=== PATIENT | female | born 1945 | race Caucasian/White ===

== ENCOUNTER 2018-04-25 22:10 | Inpatient (IN) ==
[2018-04-25 23:46] LABS: BASO# 0.01 X1000 (0.0-0.2); BASO% 0.1 % (0.0-0.8); EOS# 0.01 X1000 (0.0-0.7); EOS% 0.1 % (0.0-10.0); HEMATOCRIT 41.7 % (37.0-47.0); HEMOGLOBIN 14.4 g/dL (12.0-16.0); LYMPH# 1.04 X1000 (1.2-3.4); LYMPH% 9.5 % (20.5-51.1); MCH 31.1 PG (27-31); MCHC 34.5 g/dL (33-37); MCV 90.1 FL (81-99); MONO# 0.76 X1000 (0.11-0.59); MPV 10.9 FL (7.4-10.4); NEUT# 9.08 X1000 (1.4-6.5); NEUT% 83.3 % (42.2-75.2); PLT 274 X1000 (130-400); RBC 4.63 XMIL (4.2-5.4); RDW 12.5 % (11.5-14.5)
[2018-04-25 23:57] LABS: INR 0.96; PROTIME 13.6 Seconds (11.0-16.0); PTT 30.1 Seconds (22.3-41.8)
[2018-04-26 00:08] LABS: AGAP 15; ALB/GLOB RATIO 1.4; ALBUMIN 4.1 g/dL (3.5-5.0); ALKALINE PHOSPHATASE 71 U/L (32-104); BUN 18 mg/dL (8-22); CALCIUM 8.9 mg/dL (8.8-10.2); CHLORIDE 101 mmol/L (98-107); COSMO 279; CREATININE 0.9 mg/dL (0.5-0.9); ESTIMATED GFR > 60; GLUCOSE 149 mg/dL (70-104); GOT 16 U/L (10-30); GPT 12 U/L (10-36); POTASSIUM 3.6 mmol/L (3.5-5.1); SODIUM 137 mmol/L (136-145); TCO2 21 mmol/L (25-35); TOTAL BILIRUBIN 0.95 mg/dL (0.20-1.00)
[2018-04-26] MEDS ORDERED: PROTONIX IV ONE (02:10)
[2018-04-26] MEDS ORDERED: SODIUM CHLORIDE 0.9% INJ ONE (02:10)
[2018-04-26] MEDS ORDERED: ZOFRAN IV PRN (03:19)
[2018-04-26] MEDS ORDERED: NS 500 ML IV ONE (03:19)
[2018-04-26] MEDS: NS 1,000 ML IV SCH ×2 (03:30→22:20)
[2018-04-26] MEDS ORDERED: SODIUM CHLORIDE 0.9% INJ SCH (03:30)
--- NOTE | 2018-04-26 04:24 | HISTORY AND PHYSICAL ---
PRIMARY CARE PROVIDER: Srini Oropeza. CHIEF COMPLAINT: Blood in stool. HISTORY OF PRESENT ILLNESS: A 72-year-old female with a history of hypertension , asthma and hyperlipidemia, underwent a colonoscopy with polyp removal by Dr. Yasmine Ohara today outpatient. She went home, had minimal pain and then as the day progressed started having large amounts of bright red blood in her stool so she came into the emergency room. Although her hemoglobin and hematocrit were normal, the patient continued to have bright red blood in her stool. Hemoccult stool was sent which was positive. She will be admitted for further evaluation and treatment. PAST MEDICAL HISTORY: 1. Asthma. 2. Bladder problems in the past. 3. Hypertension. 4. Hyperlipidemia. 5. Osteoporosis. 6. GERD. 7. Anxiety disorder. 8. Depression. PREVIOUS SURGICAL HISTORY: 1. Right oophorectomy. 2. Total abdominal hysterectomy. 3. Laparoscopic George fundoplication. 4. She has also had a tonsillectomy. 5. Bilateral tubal ligation. 6. Appendectomy. ALLERGIES: No known drug allergies. FAMILY HISTORY: Father from TB. Mother when she was age 3, she is unsure of any genetic illnesses. SOCIAL HISTORY: No tobacco. May have 1-2 drinks per year and no illicit drugs. CURRENT MEDICATIONS: Dosages have not been reconciled. The patient I believe takes: 1. Pravastatin. 2. Metoprolol. 3. Aspirin 81 mg daily which has been held for the last 7 days. An order was placed for Nursing to reconcile home medications in the computer. These will be restarted when appropriate. REVIEW OF SYSTEMS: Fourteen point review of systems conducted with the patient. Pertinent positives for admission listed above in the HPI. All other systems reviewed and are negative other than the patient having a persistent cough for the past 40 years. PHYSICAL EXAMINATION: VITAL SIGNS: Temperature 98.8, pulse 111, respirations 18, blood pressure 149/ 84, oxygen saturation 97% on room air. GENERAL: Pleasant 72-year-old female lying in the ER stretcher, answers all questions appropriately, is alert and oriented times 3 and is in no acute distress. HEENT: Head is atraumatic, normocephalic. Pupils equal, round, reactive to light. Extraocular eye movement intact. Sclerae are anicteric. Conjunctiva is pink. Oral mucosa is moist. NECK: Supple. No JVD. No thyromegaly. Trachea is midline. No cervical lymphadenopathy. CARDIAC: S1, S2 appreciated. No murmurs, gallops, rubs. Patient is tachycardic. LUNGS: Clear to auscultation bilaterally. No rhonchi, wheezes, rales. Symmetric rise and fall with respirations. ABDOMEN: Soft, nondistended, diffusely tender mostly in the epigastric area. No pulsatile mass. No organomegaly. Bowel sounds present in all 4 quadrants, hyperactive. EXTREMITIES: No clubbing, cyanosis, or edema. Two-plus pedal pulses bilaterally. GENITOURINARY: No bladder distention. Patient voids. Otherwise deferred. NEUROLOGICAL: Alert and oriented times 3. Cranial nerves II through XII grossly intact. LABORATORY DATA: WBC 10.90. Hemoglobin 14.4. Hematocrit 41.7. Platelet count 274. Coagulation studies within normal limits. Sodium 137. Potassium 3.6. Chloride 101. Carbon dioxide 21. BUN 15. Creatinine 0.9. Glucose 149. ASSESSMENT AND PLAN: 1. Lower gastrointestinal bleed. Patient had outpatient colonoscopy with polyp removal today by Dr. Yasmine Ohara. Dr. Ohara is taking a leave of absence. We will consult Dr. Oro. Protonix 40 mg IV q.12 hours. We will recheck a stat hemoglobin and hematocrit. The last one was checked at 10:30 yesterday afternoon. Patient is mildly tachycardic. We will give a fluid bolus. She has been typed and screened for possible blood administration. 2. Hypertension. We will continue home medications once reconciled. 3. Hyperlipidemia. Continue home medication once dosages put in the computer. 4. Abdominal pain, likely secondary to number 1. Patient is not in enough pain to want medication at this time. We will continue to monitor. Further recommendations per patient clinical course. Dictated by QUYEN Wang for Roel Gómez MD I personally examined this patient at bedside with SERVICE ENGINE REPAIRER. Her exam was notable for epigastric tenderness without any peritoneal signs. BS were slightly hyperactive and she was mildly pale. Though I suspect a lower GI bleed there features that are suspicious for UGIB. Will monitor H and H closely. Continue with IVF and maintain very conservative control of BP, i.e., patient should not have BP lowered less than 140 in the early stages ,i.e. 2 days due to decreased intravascular volume. cc: QUYEN Wang MD Edwin K. Matthews, MD MTDD
[2018-04-26 05:33] LABS: HEMOGLOBIN A1C 4.6 % (4.8-6.0)
[2018-04-26 06:31] LABS: BASO# 0.01 X1000 (0.0-0.2); BASO% 0.1 % (0.0-0.8); EOS# 0.04 X1000 (0.0-0.7); EOS% 0.6 % (0.0-10.0); HEMOGLOBIN 14.1 g/dL (12.0-16.0); LYMPH# 1.46 X1000 (1.2-3.4); LYMPH% 20.4 % (20.5-51.1); MCH 31.1 PG (27-31); MCHC 34.4 g/dL (33-37); MCV 90.3 FL (81-99); MONO# 0.65 X1000 (0.11-0.59); MONO% 9.1 % (1.7-9.3); MPV 10.8 FL (7.4-10.4); NEUT# 4.98 X1000 (1.4-6.5); NEUT% 69.8 % (42.2-75.2); PLT 222 X1000 (130-400); RBC 4.54 XMIL (4.2-5.4); RDW 12.6 % (11.5-14.5); WBC 7.14 X1000 (4.8-10.8)
--- NOTE | 2018-04-26 06:34 | PROVIDER DOCUMENTATION ---
This chart was entered by Tasneem Ayala Scribe, acting as scribe for Amrita Magana MD. HPI-Abdominal Pain/GI Problem - General Chief Complaint: GI Bleed Stated Complaint: HAD A COLONOSCOPY TODAY AND NOW BLEEDING EXCESSIVE Time Seen by Provider: 04/25/18 23:24 Source: patient Allergies/Adverse Reactions: Patient Allergies Allergy/AdvReac Type Severity Reaction Status Date / Time No Known Allergies Allergy Verified 09/08/14 16:24 Home Medications: Home Medication List Medication Instructions Recorded Confirmed Last Taken Type Metoprolol [Lopressor] 100 mg PO DAILY 09/08/14 05/02/16 05/01/16 21:00 History PRAVAstatin [Pravachol] 20 mg PO DAILY 05/01/16 05/02/16 05/01/16 21:00 History Promethazine [Phenergan] 25 mg PO Q6H PRN PRN #14 tablet 05/03/16 Unknown Rx Tramadol/APAP [Ultracet 1 each PO Q6H PRN PRN #30 tablet 05/03/16 Unknown Rx 37.5MG/325Mg] - History of Present Illness-ABD Quality of Pain: reports: none Severity in ED: reports: moderate Onset/Duration: reports: this afternoon Timing: reports: still present Exposure to sick contacts?: No Modifying Factors: improves with: nothing Dark Stools Present?: reports: black, tarry, bright red blood Rectal Pain: reports: known hemorrhoids Review of Systems - Adult - REVIEW OF SYSTEMS - ADULT Constitutional: reports: no symptoms reported. denies: chills, fever Eyes: reports: no symptoms reported Ears, Nose, Mouth & Throat: reports: no symptoms reported Cardiovascular: reports: no symptoms reported. denies: chest pain, edema Respiratory: reports: no symptoms reported. denies: cough, shortness of breath , wheezing Gastrointestinal: reports: rectal bleeding. denies: abdominal pain, diarrhea Genitourinary: reports: no symptoms reported Musculoskeletal: reports: no symptoms reported Integumentary: reports: no symptoms reported Neurological: reports: no symptoms reported Psychiatric: reports: no symptoms reported Endocrine: reports: no symptoms reported Hematologic/Lymphatic: reports: no symptoms reported Allergic/Immunologic: reports: no symptoms reported All Other Systems: Reviewed and Negative Past History - Adult - PAST MEDICAL HISTORY-ADULT Review of Records: reports: Old Records Reviewed, Nursing Assessment Review, Medications Reviewed, Social history reviewed & non-contributory. Gastrointestinal: reports: hemorrhoids, polyps - SOCIAL HISTORY Smoking: denies, non-smoker Substance Use: none/never Alcohol Use Frequency: never Living Situation: family Physical Exam-General - PHYSICAL EXAM-ADULT Initial Vital Signs Reviewed: Yes - CONSTITUTIONAL General Appearance: appears well, alert, no apparent distress - EYES Eyes: PERRL/EOMI - HEAD, EARS, NOSE, MOUTH & THROAT HENMT: normocephalic/atraumatic, moist mucous membranes, normal ENT inspection, TMs normal, pharynx normal - NECK Neck: non-tender, full range of motion, supple, normal inspection - RESPIRATORY Respiratory: chest non-tender, lungs clear, normal breath sounds - CARDIOVASCULAR Cardiovascular: normal peripheral pulses, regular rate, rhythm, no edema, no gallop, no JVD, no murmur - GASTROINTESTINAL (ABDOMEN) Abdominal Exam: normal bowel sounds, non tender, soft - GENITOURINARY Rectal Exam: normal rectal tone, black stool, hemorrhoids - LYMPHATIC Lymphatic: no adenopathy - MUSCULOSKELETAL Back Exam: normal inspection - SKIN Integumentary: normal color - NEUROLOGIC Neurologic: grossly normal - PSYCHIATRIC Psych/Mental Status: normal mood/affect, normal thought content, normal thought process, oriented x 3 Progress - PLAN OF CARE/RESULTS Progress/Plan/Lab Results: Vital Signs - 8 hr 04/25/18 22:24 Temperature 98.8 F Pulse Rate 111 H Respiratory Rate 18 Blood Pressure 149/84 O2 Sat by Pulse Oximetry 97 Orders Category Date Time Status CBC WITH ELECTRONIC DIFF [HEME] Stat Lab 04/25/18 22:43 Ordered COMPREHENSIVE METABOLIC PANEL [CHEM] Stat Lab 04/25/18 22:43 Ordered PROTIME WITH INR [COAG] Stat Lab 04/25/18 22:43 Ordered PTT [COAG] Stat Lab 04/25/18 22:43 Ordered TYPE & SCREEN [BBK] Stat Lab 04/25/18 22:43 Ordered GI Bleed (possible) Stat Oth 04/25/18 22:31 Ordered Result Diagrams: 04/25/18 22:39 04/25/18 22:39 - CONSULTS/PCP/HOSPITALIST Notification #1 *Consult/PCP/Hospitalist*: Dr Ramírez accepted patient Time Discussed: 02:13 Consult Disposition: Will see in ED Departure - Departure Date of Disposition Decision: 04/26/18 Time of Disposition Decision: 02:10 DIAGNOSIS: GI bleed Disposition: ADMITTED INPATIENT 09 Certified Medical Emergency: Emergent Condition: Good Referrals and Follow-Ups: Srini Oropeza MD [Primary Care Provider] - - Critical Care Note This patient required my direct & personal management of CC.: No Attestation - Physician/ SRINIVASAN Attestation Patient care was provided by Advanced Practice Provider:: No The physician spent face to face time with patient:: Yes Advanced Practice Provider documentation review:: Supervising physician onsite and consulted in the evaluation and care of this patient. The physician did have a face to face encounter with the patient. This chart was documented by the indicated scribe, (Tasneem Ayala, Sal) and accurately reflects the services I performed and decisions made by me, Amrita Magana MD, as attested by the provider's signature.
[2018-04-26] MEDS: PROTONIX IV SCH ×2 (08:47→21:07)
[2018-04-26 10:12] LABS: URINE SOURCE CLEAN CATCH
[2018-04-26 10:17] LABS: BILIRUBIN URINE NEGATIVE (NEGATIVE); BLOOD URINE MODERATE (NEGATIVE); COLOR YELLOW; GLUCOSE URINE NEGATIVE (NEGATIVE); KETONE URINE TRACE mg/dL (NEGATIVE); LEUKOCYTES URINE LARGE (NEGATIVE); NITRITE URINE NEGATIVE (NEGATIVE); PROTEIN URINE TRACE mg/dL (NEGATIVE); SP GRAVITY URINE 1.016; TURBIDITY URINE HAZY (CLEAR); UROBILINOGEN URINE NORMAL (NORMAL)
[2018-04-26 10:29] LABS: UR EPITHELIAL CELLS <10 /HPF (<10); URINE BACTERIA NEGATIVE /HPF; URINE RBC <10 /HPF (<10); URINE WBC TNTC /HPF (<10)
[2018-04-26 10:52] LABS: URINE CRYSTALS NONE SEEN; URINE SMALL ROUND CELLS TRANS PRESENT
[2018-04-26 13:08] LABS: BASO# 0.01 X1000 (0.0-0.2); BASO% 0.2 % (0.0-0.8); EOS# 0.04 X1000 (0.0-0.7); EOS% 0.8 % (0.0-10.0); HEMATOCRIT 35.5 % (37.0-47.0); LYMPH# 1.02 X1000 (1.2-3.4); MCH 30.9 PG (27-31); MCHC 33.8 g/dL (33-37); MCV 91.5 FL (81-99); MONO% 8.2 % (1.7-9.3); MPV 10.3 FL (7.4-10.4); NEUT# 3.39 X1000 (1.4-6.5); NEUT% 69.8 % (42.2-75.2); PLT 197 X1000 (130-400); RBC 3.88 XMIL (4.2-5.4); RDW 12.4 % (11.5-14.5); WBC 4.86 X1000 (4.8-10.8)
[2018-04-26 18:52] LABS: BASO# 0.01 X1000 (0.0-0.2); BASO% 0.2 % (0.0-0.8); EOS# 0.04 X1000 (0.0-0.7); EOS% 0.8 % (0.0-10.0); HEMATOCRIT 35.8 % (37.0-47.0); HEMOGLOBIN 12.1 g/dL (12.0-16.0); LYMPH# 1.09 X1000 (1.2-3.4); MCH 31.1 PG (27-31); MCHC 33.8 g/dL (33-37); MONO# 0.42 X1000 (0.11-0.59); MONO% 8.1 % (1.7-9.3); MPV 10.4 FL (7.4-10.4); NEUT# 3.64 X1000 (1.4-6.5); NEUT% 69.9 % (42.2-75.2); PLT 203 X1000 (130-400); RBC 3.89 XMIL (4.2-5.4); RDW 12.5 % (11.5-14.5)
--- NOTE | 2018-04-26 19:13 | CONSULTATION ---
DATE OF CONSULTATION: 04/26/2018 REASON FOR CONSULTATION: Rectal bleeding, status post colonoscopy with polypectomies. HISTORY OF PRESENT ILLNESS: This is a 72-year-old female who underwent a colonoscopy yesterday by Dr. Ohara on 04/25/2018. Operative findings from Dr. Ohara were reviewed. Findings showed a flat polyp at the cecum with polypectomy performed with lift technique and tattoo. Of note the flap cecal polyp had lifted poorly, 4 polyps in the transverse colon with polypectomy colitis throughout the entire colon. Random biopsies were performed 4 polyps in the colon, severe diverticulosis, internal grade 2 hemorrhoids and external hemorrhoids. Patient was started on Augmentin for 7 days for colitis. Patient states after her colonoscopy she had trouble passing air and she states she eventually had bowel urgency and had noted clots with bright red blood in the stool. She had subsequent bleeding and came in to the emergency room for evaluation. On admission to the emergency room her hemoglobin was 14.4, hematocrit 41.7. Repeat hemoglobin and hematocrit this morning showed 14.1 and 41.0. Repeat hemoglobin and hematocrit at 12 noon today showed hemoglobin 12.0, hematocrit 35.5, MCV 91.5. Patient currently denies abdominal pain. She denies dizziness or lightheadedness. She reports having a small liquid stool this morning and states it was dark in color not bright red as it was prior to admission. PAST MEDICAL HISTORY: Asthma, bladder problems, hypertension, hyperlipidemia, osteoporosis, GERD, anxiety disorder, depression. PREVIOUS SURGICAL HISTORY: Colonoscopy on 04/25/[address] Ohara, right oophorectomy, total abdominal hysterectomy, laparoscopic George fundoplication, history of tonsillectomy, bilateral tubal ligation, appendectomy. ALLERGIES: No known drug allergies. HOME MEDICATIONS: Aspirin 81 mg daily, losartan 25 mg daily, Lopressor 100 mg daily, Pravachol 20 mg daily. SOCIAL HISTORY: No reported tobacco use. Occasional alcohol use. FAMILY HISTORY: Father from tuberculosis, mother from unknown cause. REVIEW OF SYSTEMS: Per history of present illness. PHYSICAL EXAMINATION: Vital Signs: Temperature 98.6 degrees, pulse 98, respirations 19, blood pressure 152/75. General: Patient is awake, alert, no acute distress. HEENT: Normocephalic, atraumatic. Pupils equal, round, reactive to light. Sclerae are nonicteric. Cardiovascular: Regular rate and rhythm. Respiratory: Lung sounds clear bilaterally. Abdomen: Soft. Only mild tenderness noted, positive bowel sounds. Extremities: No lower extremity edema noted. Pedal pulses present bilaterally. Neurologic: Cranial nerves 2-12 grossly intact. Patient is awake, alert, and oriented to person, place, and time. DIAGNOSTIC RESULTS: Laboratory. Hematology. WBC 4.86, hemoglobin 12.0, hematocrit 35.5, MCV 91.5. Coagulation. Pro time 13.6, INR 0.96, PTT 30.1. Chemistry, sodium 137, potassium 3.6, chloride 101, CO2 21, BUN 18, creatinine 0.9, glucose 149, total bilirubin 0.95, AST 16, ALT 12, alkaline phosphatase 71. ASSESSMENT AND PLAN: 1. Lower gastrointestinal bleeding status post colonoscopy with polypectomy on 04/25/2018. Will continue to monitor for active bleeding. Currently it seems to have decreased and she has had recent darker loose stool. We will monitor hemoglobin and hematocrit, transfuse packed red blood cells as indicated. 2. Multiple colon polyps, colitis, severe diverticulosis and internal, external hemorrhoids noted by colonoscopy on at on 04/25/2018, recommend to hold aspirin, avoid NSAIDs. Will continue to monitor and further plans be made according to her progress. Patient was also seen by Dr. Oro. Dictated by QUYEN Marie for Franklin Oro MD cc: QUYEN Branch MD
[2018-04-27 00:53] LABS: BASO# 0.02 X1000 (0.0-0.2); BASO% 0.4 % (0.0-0.8); EOS# 0.06 X1000 (0.0-0.7); EOS% 1.2 % (0.0-10.0); HEMATOCRIT 38.3 % (37.0-47.0); LYMPH# 1.47 X1000 (1.2-3.4); LYMPH% 29.3 % (20.5-51.1); MCHC 33.9 g/dL (33-37); MCV 91.4 FL (81-99); MONO# 0.49 X1000 (0.11-0.59); MONO% 9.8 % (1.7-9.3); MPV 10.3 FL (7.4-10.4); NEUT# 2.97 X1000 (1.4-6.5); NEUT% 59.3 % (42.2-75.2); PLT 224 X1000 (130-400); RBC 4.19 XMIL (4.2-5.4); RDW 12.4 % (11.5-14.5); WBC 5.01 X1000 (4.8-10.8)
[2018-04-27 07:02] LABS: BASO# 0.01 X1000 (0.0-0.2); BASO% 0.3 % (0.0-0.8); EOS# 0.08 X1000 (0.0-0.7); HEMATOCRIT 35.8 % (37.0-47.0); LYMPH# 0.93 X1000 (1.2-3.4); LYMPH% 23.7 % (20.5-51.1); MCH 30.8 PG (27-31); MCHC 33.5 g/dL (33-37); MCV 91.8 FL (81-99); MONO# 0.38 X1000 (0.11-0.59); MONO% 9.7 % (1.7-9.3); MPV 10.3 FL (7.4-10.4); NEUT# 2.52 X1000 (1.4-6.5); NEUT% 64.3 % (42.2-75.2); PLT 197 X1000 (130-400); RDW 12.3 % (11.5-14.5); WBC 3.92 X1000 (4.8-10.8)
[2018-04-27 07:39] LABS: AGAP 8; BUN 6 mg/dL (8-22); CHLORIDE 108 mmol/L (98-107); COSMO 278; CREATININE 0.6 mg/dL (0.5-0.9); ESTIMATED GFR > 60; GLUCOSE 89 mg/dL (70-104); POTASSIUM 3.1 mmol/L (3.5-5.1); SODIUM 141 mmol/L (136-145); TCO2 25 mmol/L (25-35)
[2018-04-27] MEDS: PROTONIX IV SCH (10:29)
[2018-04-27 11:50] VITALS: BP 167/85
--- NOTE | 2018-04-27 13:52 | DISCHARGE SUMMARY ---
ADMISSION DATE: 04/26/2018 DISCHARGE DATE: 04/27/2018 HISTORY OF PRESENT ILLNESS: This is a 72-year-old with a history of hypertension, asthma, and hyperlipidemia, who underwent colonoscopy and had polyp removed per Dr. Ana Cristina Ohara as an outpatient. She went home, had minimal pain, and then progressively started having large amounts of bright red blood in the stool and she came into the emergency room. Her hemoglobin and hematocrit were normal, but Dr. Ohara wanted to admit and follow. She has not had any further sign of bleeding. She feels good this morning, and Dr. Middleton called and said she can go home. PAST MEDICAL HISTORY: 1. Asthma. 2. Bladder problems in the past. 3. Hypertension. 4. Hyperlipidemia. 5. Osteoporosis. 6. Gastroesophageal reflux disease. 7. Anxiety disorder. 8. Depression. SURGICAL HISTORY: 1. Oophorectomy. 2. Total abdominal hysterectomy. 3. Laparoscopic George fundoplication. 4. She has also had tonsillectomy. 5. Bilateral tubal ligation. 6. Appendectomy. DIAGNOSTIC DATA: Her follow-up hematocrit the following morning was 35, and hemoglobin was 12. DISPOSITION: We will discharge her home. CURRENT MEDICATIONS: Aspirin, we will hold through the weekend and start again on Sunday. She is on losartan 25 mg a day. Metoprolol 100 mg a day. Pravachol 20 mg a day. cc: Jordan Farias MD
== END 2018-04-27 15:38 | disposition home or self-care (01) | DRG 921 ==
LOC: ED 22:10 → EDIPHOLD 04-26 03:45 → SUATTDRO 04-26 03:45 → 3N 04-26 15:11
PROVIDERS: ATTEND Emergency Medicine
CPT/HCPCS: 80048; 80053; 81001; 82270; 83036; 84443; 85014; 85018; 85025; 85610; 85730; 86850; 86900; 86901; 87088; 96374; 96376; 99285; C9113; J7030; J7040; S0164

== ENCOUNTER 2018-06-21 06:55 | Inpatient (IN) ==
[2018-06-21] MEDS ORDERED: ENTEREG ONE (07:29)
[2018-06-21] MEDS ORDERED: LR 1,000 ML ONE ×2 (07:29→07:53)
[2018-06-21] MEDS ORDERED: MEFOXIN 1 GM/D5W 2 GM/100 ML IVPB ONE (07:29)
--- NOTE | 2018-06-21 07:32 | EKG Report ---
Test Performed on : 06/21/2018 07:27:46 AM Test Reason : PREOP Blood Pressure : / mmHG Vent. Rate : 077 BPM Atrial Rate : 077 BPM P-R Int : 142 ms QRS Dur : 086 ms QT Int : 402 ms P-R-T Axes : 036 005 025 degrees QTc Int : 454 ms Normal sinus rhythm. Minimal voltage criteria for LVH, may be normal variant Borderline ECG When compared with ECG of 01-MAY-2016 13:43, Minimal criteria for Anterior infarct are no longer present Unconfirmed Result
[2018-06-21] MEDS ORDERED: XYLOCAINE-MPF 2% ONE (07:57)
[2018-06-21] MEDS ORDERED: DIPRIVAN 1% ONE (07:57)
[2018-06-21] MEDS ORDERED: ROBINUL ONE ×2 (07:57→10:45)
[2018-06-21] MEDS ORDERED: QUELICIN (DOSE) ONE (07:57)
[2018-06-21] MEDS ORDERED: EXPAREL 1.3% ONE (08:37)
[2018-06-21] MEDS ORDERED: SODIUM CHLORIDE 0.9% 10 ML ONE ×2 (08:37→08:42)
[2018-06-21] MEDS ORDERED: MARCAINE 0.25% ONE (08:37)
[2018-06-21] MEDS ORDERED: NORCURON ONE (08:42)
[2018-06-21] MEDS ORDERED: OFIRMEV 1000 MG/ISOTONIC SOLN 1,000 MG/100 ML BOTTLE ONE (08:54)
[2018-06-21] MEDS ORDERED: DILAUDID ONE (09:03)
[2018-06-21] MEDS ORDERED: ZOFRAN ONE (09:07)
[2018-06-21] MEDS ORDERED: DECADRON ONE (09:07)
[2018-06-21] MEDS ORDERED: TORADOL ONE (09:07)
[2018-06-21 10:23] LABS: URINE SOURCE CATH
[2018-06-21 10:33] LABS: BILIRUBIN URINE NEGATIVE (NEGATIVE); BLOOD URINE NEGATIVE (NEGATIVE); COLOR STRAW; GLUCOSE URINE NEGATIVE (NEGATIVE); KETONE URINE NEGATIVE (NEGATIVE); LEUKOCYTES URINE NEGATIVE (NEGATIVE); NITRITE URINE NEGATIVE (NEGATIVE); PH URINE 6.5; PROTEIN URINE NEGATIVE (NEGATIVE); TURBIDITY URINE CLEAR (CLEAR); UROBILINOGEN URINE NORMAL (NORMAL)
[2018-06-21 10:34] LABS: UR EPITHELIAL CELLS <10 /HPF (<10); URINE BACTERIA NEGATIVE /HPF; URINE RBC <10 /HPF (<10); URINE WBC <10 /HPF (<10)
[2018-06-21] MEDS ORDERED: NEOSTIGMINE ONE (10:45)
[2018-06-21] MEDS ORDERED: D5 1/2 NS + KCL 20 MEQ 1,000 ML ONE (11:24)
--- NOTE | 2018-06-21 11:38 | OPERATIVE NOTE ---
PROCEDURE DATE: 06/21/2018 PREOPERATIVE DIAGNOSIS: Cecal mass. POSTOPERATIVE DIAGNOSIS: Cecal mass. PROCEDURE: Laparoscopic robot assisted right hemicolectomy. SURGEON: Rosalio Song MD. DRIER BELT CONVEYOR: Dr. Otero. Dr. Otero assisted with the entirety of the case. His presence was crucial for the completion of the case. ANESTHESIA: General endotracheal. OPERATIVE FINDINGS: The lesion was tattooed and noted in the cecum. COMPLICATIONS: None at the time of this dictation. ESTIMATED BLOOD LOSS: 50 mL. SPECIMENS REMOVED: Right colon. BRIEF HISTORY: A 72-year-old female who had a colonoscopy proven mass. Workup did not show any other signs of malignancy. It is felt that she would benefit from a colectomy. The risks, benefits, and alternatives were discussed. All questions were answered. DESCRIPTION OF PROCEDURE: After informed consent was obtained, the patient was brought to the operative theatre, transferred to the operating table and laid in the supine position. General endotracheal anesthesia was then performed without complication. A formal time- out was then performed confirming patient and procedure. All were in agreement. At that time, attention was turned to the abdomen. An infraumbilical incision was made through which using Optiview technique we inserted a 12 mm trocar and connected to insufflation. Pneumoperitoneum was achieved. Under direct visualization, we placed several more trocars one 8 mm in the subcostal region of the left upper quadrant, and one 12 mm in the lateral aspect of the anterior axillary line on the left side, one 5 mm in the left lower quadrant, and one 8 mm in the midline suprapubically. Using these, we docked the robot. I turned my attention to the robot console. We identified the lesion in the cecum. We elevated it and isolated the ileocolic artery, and transected it using the vessel sealer, preserving the lymphatics with it. We dissected medial lateral approach up the ascending colon to the hepatic flexure. We were able to identify the duodenum and kept it down. We were able to dissect this all the way laterally until we saw the liver. We then used the firefly to identify the perfusion. I found an area at the hepatic flexure and the terminal ileum which we used the robotic stapler to transect. We then finished the medial lateral dissection and placed the specimen above the liver. We then brought the terminal ileum to the hepatic flexure. Using the stapler, we did an intraportal isoperistaltic anastomosis. We oversewed the common channel with a running V-Loc suture in 2 layers. We then reexamined everything with firefly. There was perfusion noted. We irrigated out the abdomen, de-docked the robot, brought the specimen out through an extended infraumbilical incision. We then closed the infraumbilical incision with 0 Vicryl on a David Kannan device. All other skin trocars were removed. The skin was closed with biopsy. The patient tolerated procedure well, and was transferred back to recovery room in stable condition. cc: Rosalio Song MD [facility]ITAL[facility]
[2018-06-21] MEDS ORDERED: ULTRAM PO PRN (12:43)
[2018-06-21] MEDS ORDERED: ZOFRAN IV PRN (12:43)
[2018-06-21] MEDS ORDERED: TYLENOL PO PRN (12:45)
[2018-06-21] MEDS ORDERED: TYLENOL PR PRN (12:45)
[2018-06-21] MEDS ORDERED: D5 1/2 NS + KCL 20 MEQ 1,000 ML IV SCH (13:00)
[2018-06-21] MEDS: OFIRMEV 1000 MG/ISOTONIC SOLN 1,000 MG/100 ML BOTTLE IV SCH ×2 (14:30→19:37)
[2018-06-21] MEDS ORDERED: PHENERGAN PO PRN (16:16)
[2018-06-21] MEDS: MEFOXIN 2 GM/NS 2 GM/50 ML IVPB IV SCH ×2 (16:30→22:12)
[2018-06-21] MEDS: HEPARIN SUBQ SCH (22:12)
[2018-06-21] MEDS: PERIDEX MT SCH (22:14)
[2018-06-22] MEDS: OFIRMEV 1000 MG/ISOTONIC SOLN 1,000 MG/100 ML BOTTLE IV SCH ×2 (02:13→07:40)
[2018-06-22] MEDS: HEPARIN SUBQ SCH ×3 (04:26→21:16)
[2018-06-22] MEDS: MEFOXIN 2 GM/NS 2 GM/50 ML IVPB IV SCH ×2 (04:27→11:00)
[2018-06-22] MEDS: PROTONIX PO SCH ×2 (04:30→07:35)
[2018-06-22] MEDS: PRILOSEC PO SCH ×2 (04:30→07:35)
--- NOTE | 2018-06-22 10:20 | GENERAL SURGERY PROGRESS NOTE ---
DATE: 06/22/2018 SUBJECTIVE: The patient is doing well. No acute complaints this morning. She is tolerating sips of liquids. She has not been out of bed yet. OBJECTIVE: Vital Signs: She is afebrile. Vital signs are stable. General: She is awake, alert, oriented x4. No acute distress. CV: Regular rate and rhythm. Respiratory: No work of breathing. GI: Soft, nondistended, mildly tender. Incisions are intact. She has good bowel sounds. LABORATORY: None. ASSESSMENT/PLAN: A 72-year-old female postoperative day 1 robotic right colectomy. We will mobilize her today. Discontinue the Howard catheter and advance her to a full liquid diet. cc: MD Rosalio Muñiz MD
[2018-06-22] MEDS: PERIDEX MT SCH ×2 (10:59→21:16)
[2018-06-22] MEDS: ENTEREG PO SCH ×2 (10:59→21:16)
[2018-06-22] MEDS ORDERED: LOPRESSOR PO SCH (21:00)
[2018-06-22] MEDS ORDERED: COZAAR PO SCH (21:00)
[2018-06-22] MEDS ORDERED: PRAVACHOL PO SCH (21:00)
[2018-06-23] MEDS: PROTONIX PO SCH (06:16)
[2018-06-23] MEDS: PERIDEX MT SCH (09:12)
[2018-06-23] MEDS: ENTEREG PO SCH (09:12)
--- NOTE | 2018-06-23 10:47 | GENERAL SURGERY PROGRESS NOTE ---
DATE: 06/23/2018 SUBJECTIVE: She says she feels better overall with less pain but it is not resolved. OBJECTIVE: She is afebrile. Vital signs are stable. General: She is awake, alert, and oriented x3. No acute distress. Gastrointestinal: Soft, nondistended. She is still moderately tender across her lower abdomen and suprapubic area. No rebound or guarding. Laboratory: White cell count 7.8, hemoglobin 10.4. Electrolytes reviewed and unremarkable. ASSESSMENT AND PLAN: A 65-year-old female with complicated diverticulitis. She has made some improvement. I will start her on a liquid diet today and reexamine her tomorrow. Continue the Cipro and Flagyl intravenously for now. cc: MD Rosalio Muñiz MD
--- NOTE | 2018-06-23 10:57 | GENERAL SURGERY PROGRESS NOTE ---
DATE: 06/23/2018 SUBJECTIVE: She is doing fairly well. She is tolerating her diet. Walking, voiding is without severe pain, but she has had multiple episodes of loose to liquid stool this morning. She also has a rash under both breasts. OBJECTIVE: She is afebrile. Vital signs are stable.General: She is awake, alert, oriented x4. No acute distress. CV: Regular rate and rhythm. Respiratory: No work of breathing. GI: Soft, nondistended, minimally tender. Incisions are clean, dry, and intact. She does have good bowel sounds. SKIN: There is a rash under the skin folds of each breast consistent with intertrigo. ASSESSMENT AND PLAN: A 72-year-old female postoperative day 2 robotic right hemicolectomy. She is having some mine op intertrigo. She looks appropriate for discharge. I will send her home with a Diflucan prescription as well as recommendations for Triple Paste for the rash. I have encouraged her to stay hydrated and I think the diarrhea will improve in short order as she adjusts to partial colectomy. She will follow up with Dr. Song in 1 to 2 weeks. cc: MD Rosalio Muñiz MD
[2018-06-23 12:34] VITALS: BP 148/81
== END 2018-06-23 12:57 | disposition home or self-care (01) | DRG 331 ==
LOC: SURHOLD 06:55 → 4N 12:21
PROVIDERS: ADMIT Surgery; ATTEND Surgery
CPT/HCPCS: 81001; 86850; 86900; 86901; 88309; 88313; 93005; 93010; A9270; C9290; J0131; J0330; J0694; J1100; J1170; J1644; J1885; J2405; J3480; J7120; S0020; S2900